=== PATIENT | male | born 1975 | race African-American/Black ===

== ENCOUNTER 2019-03-07 13:10 | Inpatient (IN) | payer BC, OTHER ==
[~2019-03-07] VITALS: Ht 172.7 cm; Wt 100.0 kg
[2019-03-07] MEDS ORDERED: SODIUM CHLORIDE 0.9% 1,000 ML IV ONE (13:40)
[2019-03-07] MEDS ORDERED: InsuLIN REG 1unit/0.01ml Soln (100units/ml) IV ONE (13:45)
[2019-03-07 14:02] LABS: Basophils # (auto) 0 uL; Eosinophils # (auto) 0 uL; Lymphocytes # (auto) 1.1 uL; Monocytes # (auto) 0.4 uL; Nucleated Red Blood Cells % 0.1 %; Red Cell Distribution Width 14.8 % (11.8-14.3)
[2019-03-07 14:06] LABS: Basophils % (auto) 0.2 % (0.0-2.0); Hematocrit 54.3 % (41.0-53.0); Hemoglobin 17.2 g/dL (13.5-17.5); Lymphocytes % (auto) 10.5 % (10.0-50.0); Mean Corpuscular Hemoglobin 27.4 pg (28.0-32.0); Mean Corpuscular Hgb Conc. 31.7 g/dL (32.0-36.0); Mean Corpuscular Volume 86.4 fL (80.0-100.0); Monocytes % (auto) 3.6 % (0.0-12.0); Neutrophils # (auto) 8.9 uL; Neutrophils % (auto) 85.7 % (37.0-80.0); Platelet Count (auto) 250 10^3/uL (140-450); Red Blood Cells 6.29 10^6/uL (4.5-5.90); White Blood Cell 10.3 10^3/uL (4.4-10.8)
[2019-03-07 14:11] LABS: Albumin 4.6 g/dL (3.4-5.0); Calcium 11.5 mg/dL (8.5-10.1); Magnesium 3.3 mg/dL (1.6-2.6); Potassium 5.1 mmol/L (3.5-5.1)
[2019-03-07 14:15] LABS: Bilirubin, Total 0.5 mg/dL (0.2-1.0)
[2019-03-07 14:19] LABS: BUN/Creatinine Ratio 22.4
[2019-03-07] MEDS ORDERED: InsuLIN R (HUMAN) 100 UNITS in SODIUM CHL 0.9% 99 ML IV SCH (14:50)
[2019-03-07] MEDS ORDERED: DEXTROSE (50%) 50ML SYRG IV PRN (15:00)
[2019-03-07] MEDS: ACCU-CHEK COMFORT CURVE STRIP VI SCH ×6 (15:12→23:04)
[2019-03-07] MEDS ORDERED: PROMETHAZINE HCL 25 MG/ML 1ML IV PRN (15:30)
[2019-03-07] MEDS ORDERED: TEMAZEPAM 15 MG CAP PO PRN (15:30)
[2019-03-07] MEDS ORDERED: INSULIN LANTUS (GLARGINE) 1 /0.01ml (100units/ml) SC ONE (15:30)
[2019-03-07] MEDS ORDERED: MORPHINE SULF INJ 2 MG/ML SYRINGE 1ML IV PRN (15:30)
[2019-03-07] MEDS ORDERED: NITROGLYCERIN 0.4 MG SL TAB SL PRN (15:30)
[2019-03-07] MEDS ORDERED: traMADol HCL 50 MG TAB PO PRN (15:30)
[2019-03-07] MEDS ORDERED: ACETAMINOPHEN 500 MG TAB PO PRN (15:30)
[2019-03-07] MEDS: SODIUM CHLORIDE 0.9% 1,000 ML IV SCH ×2 (15:52→22:03)
[2019-03-07 16:04] LABS: Urine Bacteria FEW /hpf (None Seen); Urine Blood Negative /uL (Negative); Urine Specific Gravity 1.033 (1.001-1.035); Urine WBC <1 /hpf (0 - 3)
[2019-03-07 16:22] LABS: Amylase 38 U/L (25-115); Lipase 154 U/L (73-393)
[2019-03-07] MEDS: FAMOTIDINE 20 MG TAB PO SCH (22:00)
[2019-03-07] MEDS: INSULIN LANTUS (GLARGINE) 1 /0.01ml (100units/ml) SC SCH (22:00)
[2019-03-07 23:00] LABS: Albumin 3.9 g/dL (3.4-5.0); BUN/Creatinine Ratio 19.9; Calcium 9.4 mg/dL (8.5-10.1); Potassium 4.3 mmol/L (3.5-5.1)
[2019-03-07 23:03] LABS: Bilirubin, Total 0.5 mg/dL (0.2-1.0); Total Protein 7.8 g/dL (6.4-8.2)
[2019-03-08] VITALS (7 sets, daily range): BP systolic 138–156; BP diastolic 88–107
[2019-03-08] MEDS: ACCU-CHEK COMFORT CURVE STRIP VI SCH ×7 (00:09→19:26)
[2019-03-08] MEDS ORDERED: DEXTROSE (50%) 50ML SYRG IV PRN ×2 (01:30→12:30)
--- NOTE | 2019-03-08 03:01 | NUR ---
Pt Arrived on Unit Pt arrived on unit via wheelchair. No s/s of distress or SOB noted. Pt is a/ox4. Instructed pt on how to use the call light, when to call as well as where the bathroom is. Will continue to monitor for changes.
--- NOTE | 2019-03-08 03:15 | NUR ---
Elevated BP On admission, pt's blood pressure is 156/107. Pt has a history of evelated blood pressure. At this time pt is asymptomatic. Will continue to monitor for changes prn. Addendum: 03/08/19 at 0528 by HOMERO DRUMMOND RN RN Reassessed pt's BP; currently 139/97 with a HR of 82 bpm Will continue to monitor for change.
--- NOTE | 2019-03-08 03:19 | NUR ---
Medication Reconciliation Pt stated that he believes he was prescribed "lantus and metformin" at one point early on in his diagnosis with diabetes mellitus. But pt states that he no longer takes these stated medications because he "manages his sugars" through food.
[2019-03-08] MEDS: InsuLIN REG 1unit/0.01ml Soln (100units/ml) SC SCH ×5 (03:39→19:30)
[2019-03-08] MEDS: SODIUM CHLORIDE 0.9% 1,000 ML IV SCH (04:43)
[2019-03-08] MEDS: INSULIN LANTUS (GLARGINE) 1 /0.01ml (100units/ml) SC SCH ×2 (06:28→21:54)
--- NOTE | 2019-03-08 07:20 | NUR ---
Open Shift Note Received report on patient,awake and sitting up in bed. Patient shows no signs of distress at this time. Discussed POC with patient. Bed in lowest locked position, side rails up x2 and call light within reach. Will continue to monitor.
[2019-03-08 08:29] LABS: Albumin 3.6 g/dL (3.4-5.0); BUN/Creatinine Ratio 21.1; Potassium 4.7 mmol/L (3.5-5.1)
[2019-03-08 08:32] LABS: Bilirubin, Total 0.6 mg/dL (0.2-1.0); Total Protein 7.1 g/dL (6.4-8.2)
[2019-03-08] MEDS: FAMOTIDINE 20 MG TAB PO SCH ×2 (09:48→21:54)
--- NOTE | 2019-03-08 12:30 | NUR ---
BS 446 Patient's blood sugar 446. Called Doctor Metzger per protocol. Dr Metzger stated to advance patient to aggressive scale, and to administer 16 units of regular insulin. Administered 10 units per original protocol, and additional 6 units given to equal 16. Will continue to monitor patient's blood sugar.
[2019-03-08] MEDS ORDERED: METOPROLOL TARTRATE 50 MG TAB PO ONE (13:45)
[2019-03-08] MEDS ORDERED: InsuLIN REG 1unit/0.01ml Soln (100units/ml) IV ONE (14:30)
[2019-03-08] MEDS ORDERED: SOD CHL 0.45% 1,000 ML IV ONE (14:30)
--- NOTE | 2019-03-08 14:46 | NUR ---
Nutrition consult/assessment Notes please see attached link for complete assessment Est. Needs ABW 82 [id number] kcal (23-25 kcal/kgBW), 65-82 gms pro (0.8-1.0 gms/kgBW r/t elev RFT). Will continue to monitor pertinent labs and reassess nutrient need prn Addendum: 03/08/19 at [address] Amended: Links added.
[2019-03-08 18:11] LABS: Basophils # (auto) 0 uL; Basophils % (auto) 0.4 % (0.0-2.0); Eosinophils # (auto) 0.3 uL; Hematocrit 45.3 % (41.0-53.0); Hemoglobin 14.7 g/dL (13.5-17.5); Lymphocytes # (auto) 2.2 uL; Lymphocytes % (auto) 21.8 % (10.0-50.0); Mean Corpuscular Hemoglobin 27.4 pg (28.0-32.0); Mean Corpuscular Hgb Conc. 32.5 g/dL (32.0-36.0); Mean Corpuscular Volume 84.2 fL (80.0-100.0); Monocytes # (auto) 0.7 uL; Monocytes % (auto) 6.5 % (0.0-12.0); Neutrophils % (auto) 68.3 % (37.0-80.0); Platelet Count (auto) 213 10^3/uL (140-450); Red Blood Cells 5.38 10^6/uL (4.5-5.90); Red Cell Distribution Width 14.4 % (11.8-14.3); White Blood Cell 10.3 10^3/uL (4.4-10.8)
[2019-03-08 18:32] LABS: Albumin 3.5 g/dL (3.4-5.0); BUN/Creatinine Ratio 22.8; Calcium 8.6 mg/dL (8.5-10.1); Potassium 3.3 mmol/L (3.5-5.1)
[2019-03-08 18:34] LABS: Bilirubin, Total 0.5 mg/dL (0.2-1.0); Total Protein 6.9 g/dL (6.4-8.2)
[2019-03-08] MEDS: SOD CHL 0.45% 1,000 ML IV SCH ×2 (18:45→19:41)
--- NOTE | 2019-03-08 18:46 | NUR ---
Closing Note Patient sitting up in bed, shows no signs of distress at this time. Bed in lowest locked position, side rails up x2 and call light within reach.
[2019-03-08] MEDS: METOPROLOL TARTRATE 50 MG TAB PO SCH (21:54)
[2019-03-09] MEDS: ACCU-CHEK COMFORT CURVE STRIP VI SCH ×5 (00:24→16:00)
[2019-03-09] MEDS: InsuLIN REG 1unit/0.01ml Soln (100units/ml) SC SCH ×5 (00:25→16:00)
[2019-03-09] MEDS: SOD CHL 0.45% 1,000 ML IV SCH ×3 (00:50→16:25)
[2019-03-09 05:45] VITALS: BP 136/92
[2019-03-09] MEDS: INSULIN LANTUS (GLARGINE) 1 /0.01ml (100units/ml) SC SCH (06:10)
--- NOTE | 2019-03-09 07:25 | NUR ---
Open Shift Note Received report on patient, awake and sitting up in bed. Patient shows no signs of distress at this time. Discussed POC with patient. Bed in lowest locked position, side rails up x2 and call light within reach. Will continue to monitor.
[2019-03-09 08:06] LABS: Basophils # (auto) 0 uL; Basophils % (auto) 0.4 % (0.0-2.0); Eosinophils # (auto) 0.3 uL; Eosinophils % (auto) 4.7 % (0.0-7.0); Hematocrit 43.2 % (41.0-53.0); Lymphocytes % (auto) 28.8 % (10.0-50.0); Mean Corpuscular Hemoglobin 27.5 pg (28.0-32.0); Mean Corpuscular Hgb Conc. 32.5 g/dL (32.0-36.0); Mean Corpuscular Volume 84.6 fL (80.0-100.0); Monocytes # (auto) 0.5 uL; Monocytes % (auto) 6.9 % (0.0-12.0); Neutrophils # (auto) 4.2 uL; Neutrophils % (auto) 59.2 % (37.0-80.0); Nucleated Red Blood Cells % 0.1 %; Platelet Count (auto) 178 10^3/uL (140-450); Red Cell Distribution Width 14.5 % (11.8-14.3); White Blood Cell 7.1 10^3/uL (4.4-10.8)
[2019-03-09 08:13] LABS: Potassium 3.1 mmol/L (3.5-5.1)
[2019-03-09 08:17] LABS: Albumin 3.1 g/dL (3.4-5.0); BUN/Creatinine Ratio 21.5
[2019-03-09 08:20] LABS: Bilirubin, Total 0.9 mg/dL (0.2-1.0); Total Protein 6.2 g/dL (6.4-8.2)
[2019-03-09 09:00] VITALS: BP 156/99
[2019-03-09] MEDS ORDERED: POTASSIUM CHL 20 Meq TABLET PO ONE (10:45)
[2019-03-09] MEDS: FAMOTIDINE 20 MG TAB PO SCH (11:39)
[2019-03-09] MEDS: METOPROLOL TARTRATE 50 MG TAB PO SCH (11:40)
[2019-03-09 11:57] VITALS: BP 156/99
[2019-03-09 13:00] VITALS: BP 156/108
--- NOTE | 2019-03-09 17:15 | NUR ---
Discharged Discharge instructions given as ordered. Encourage to follow up with PMD as instructed. All questions and concerns addressed. Patient verbalized understanding. Prescription filled at [facility], patient taken to [employer] downstairs. IVs removed with catheters intact, pressure dressings applied. Telemetry unit returned to ICU. Patient taken to lobby via wheelchair with all personal belongings, accompanied by staff and awaiting taxi pickup. No distress noted at time of departure.
--- NOTE | 2019-03-10 12:54 | NUR ---
Discharge planning per consult received, patient requested information regarding an advance directive. Information was: printed, provided, and explained to the patient; he verbalized understanding. Addendum: 03/10/19 at 1256 by EROS MOLINA Amended: Links added.
== END 2019-03-09 17:15 | disposition home or self-care (01) | DRG 638 ==
LOC: ER 13:14 → TELE 13:15 → TELE-EAST 03-08 03:32
PROVIDERS: ADMIT Internal Medicine; ATTEND Family Medicine
DX: E11.10 Type 2 diabetes mellitus with ketoacidosis without coma (principal); N17.9 Acute kidney failure, unspecified; E83.52 Hypercalcemia; E86.0 Dehydration; E87.6 Hypokalemia; I10 Essential (primary) hypertension; E66.9 Obesity, unspecified; Z79.4 Long term (current) use of insulin; Z82.49 Family history of ischemic heart disease and other diseases of the circulatory system; Z91.14 Patient's other noncompliance with medication regimen; Z91.19 Patient's noncompliance with other medical treatment and regimen; Z79.899 Other long term (current) drug therapy; Z68.33 Body mass index [BMI] 33.0-33.9, adult
CPT/HCPCS: 36415; 36600; 80053; 81001; 82010; 82150; 82805; 82962; 83036; 83690; 83735; 85025; 93005; G0378; J1815